=== PATIENT | male | born 1990 | race Caucasian/White ===

== ENCOUNTER 2023-05-17 11:44 | Emergency (ER) | payer OTHER ==
[2023-05-17 11:48] VITALS: BP 133/65; PULSE 62; RESP 20; TEMP 97.6; BMI 27.1
== END 2023-05-17 12:20 | disposition left against medical advice (07) ==
LOC: JER 11:44
DX: R10.12 Left upper quadrant pain (principal); R14.0 Abdominal distension (gaseous); R19.7 Diarrhea, unspecified
CPT/HCPCS: 99281-25

== ENCOUNTER 2023-09-10 13:21 | Emergency (ER) | payer OTHER ==
[2023-09-10 13:46] VITALS: BP 118/75; PULSE 63; RESP 15; TEMP 98.2; BMI 25.7
[2023-09-10] MEDS ORDERED: SODIUM CHLORIDE 1,000 ML IV ONE (13:58)
[2023-09-10] MEDS ORDERED: MAG HYDROX/AL HYDROX/SIMETH -MYLANTA- ORAL SUSPENSION PO ONE (13:58)
[2023-09-10] MEDS ORDERED: FAMOTIDINE 20 MG/50 ML IVPB 20 MG in PREMIX 50 IVPB ONE (13:58)
[2023-09-10 14:25] LABS: HEMATOCRIT 45.7 % (35.4-49); HEMOGLOBIN 15.7 G/dL (11.7-16.9); MCH 30.8 pg (25.7-33.7); MCHC 34.4 g/dl (32.0-35.9); MEAN CELL VOLUME 89.7 fl (80-96); MEAN PLT VOLUME 7.5 fl (7.5-11.1); PLATELET COUNT 234.6 10^3/uL (134-434); RDW 13.8 % (11.9-15.9); WHITE BLOOD COUNT 5.3 10^3/uL (4.0-10.8)
[2023-09-10] MEDS ORDERED: MAG HYDROX/AL HYDROX/SIMETH 30 ML UNIT-DOSE CUP ONE (14:27)
[2023-09-10] MEDS ORDERED: FAMOTIDINE 20 MG/50 ML IVPB 20 MG/50 ML MG IVPB ONE (14:27)
[2023-09-10 14:28] LABS: PLATELET ESTIMATE ADEQUATE
[2023-09-10 14:35] LABS: ALBUMIN 4.3 g/dl (3.4-5.0); BILIRUBIN,TOTAL 2.7 mg/dl (0.2-1); CALCIUM 9.2 mg/dl (8.5-10.1); CREATININE 0.9 mg/dl (0.6-1.3); POTASSIUM 4.4 mmol/L (3.5-5.1)
== END 2023-09-10 18:03 | disposition home or self-care (01) ==
LOC: FER 13:21
PROC: 3E033GC Introduction of Other Therapeutic Substance into Peripheral Vein, Percutaneous Approach (ICD-10-PCS; principal; 2023-09-10)
DX: K21.9 Gastro-esophageal reflux disease without esophagitis (principal); R07.89 Other chest pain; R10.12 Left upper quadrant pain; R11.0 Nausea
CPT/HCPCS: 36415; 71046-TC-FY; 80053; 83690; 84484; 85027; 93005; 99285-25

== ENCOUNTER 2023-12-01 05:15 | Day surgery (SDC) | payer OTHER ==
[2023-11-28 09:54] VITALS: BMI 31.9
[2023-12-01 11:03] VITALS: TEMP 98.2
[2023-12-01 11:26] VITALS: BP 120/64; PULSE 52; RESP 14
== END 2023-12-01 11:29 | disposition home or self-care (01) ==
LOC: JASU-ENDO 05:15
PROVIDERS: ATTEND Internal Medicine Gastroenterology
PROC: 0DB68ZX Excision of Stomach, Via Natural or Artificial Opening Endoscopic, Diagnostic (ICD-10-PCS; principal; 2023-12-01 10:00)
DX: K29.50 Unspecified chronic gastritis without bleeding (principal)
CPT/HCPCS: 88305-TC; 88342-TC